=== PATIENT | male | born 1935 | race Caucasian/White ===

== ENCOUNTER 2024-04-07 08:52 | Emergency (ER) | payer OTHER, SELFPAY ==
[2024-04-07 08:57] VITALS: BP 139/104; PULSE 92; RESP 16; TEMP 36.4; O2SAT 96
--- NOTE | 2024-04-07 09:58 | W.ED.GENAD ---
Discharge Plan Disposition Patient Disposition: Home Condition: Stable Discharge Details Clinical Impression: Abscess of left buttock Primary Care Provider: Unknown,Unknown ED Provider: Sanjay Mcallister Home Meds and New Rx's Prescriptions: New doxycycline hyclate 100 mg capsule 100 mg PO BID 5 Days Qty: 10 0RF Discharge Instructions Instructions: Doxycycline (By mouth), Abscess (ED) Additional Instructions: You were seen in the emergency department for the abscess of your left buttock. We performed incision and drainage, I drained a significant amount of pus from the wound. I packed this with antibiotic impregnated packing cloth. Please have your home health nurse remove this packing just by pulling on it in 48 to 72 hours. Please keep the area clean and dry, please seek a referral to wound care as you spend a significant amount of time sitting on this area and it could develop into a worsening ulcer if not taking care of properly. I have sent a prescription for an antibiotic called doxycycline to treat the likely mild cellulitis surrounding this abscess. Please return for any worsening to the area especially with fever, worsening redness spreading out from the area, nausea vomiting. Referrals: [facility] [Outside] (Please refer patient to wound care, for prophylaxis against pressure ulcer from L buttock abscess) Discharge Data Discharge Date/Time-TO BE ENTERED AT DEPARTURE: 04/07/24 10:19 HPI General Date/Time Provider Initiated Documentation: 04/07/24 09:58. HPI Narrative: 89 year-old male presents to ED today by POV/ambulating with a chief complaint of boil on R buttock with onset about 3 weeks ago noted increase in swelling and pain to the area. Quality described as tender to touch, hurts to sit on- denies fever. Patient spends a lot of time sitting, sleeps in his recliner, no radiation to purulent drainage, bowel changes, rectal pain, chest pain, shortness of breath, nausea/vomiting, abdominal pain. Severity is described as 7/10 when palpated. Palliating factors include nothing specific- HomeHealth nurse has applied M-plex dressings. Provoking factors include nothing specific. Patient not anticoagulated. Related Data Home Medications Medication Instructions Recorded Confirmed doxycycline hyclate 100 mg capsule 100 mg PO BID prophylaxis 5 days 04/07/24 #10 caps Previous Rx's Medication Instructions Recorded doxycycline hyclate 100 mg capsule 100 mg PO BID prophylaxis 5 days 04/07/24 #10 caps General Stated Complaint: RashLesion CHIQUITA: 3 Review of Systems All systems reviewed & are unremarkable except as noted in HPI and below Exam Narrative Exam Narrative: GENERAL APPEARANCE: Well-nourished, non-toxic, awake and alert, atraumatic, no acute distress. SKIN: Warm, pink, dry, 2x2c indurated fluctuant swelling in L lateral buttock, no active drainage, no lymphadenitis, mild chafing rectally being managed by M-plex, no pressure ulcers HEAD: Normocephalic, atraumatic, normal hair distribution for gender/age. EYES: Pupils PERRLA, EOMs intact without nystagmus, normal conjunctiva, no exudates on lids/lashes. ENT: Nares patent, no circumoral cyanosis, no facial swelling NECK: Supple, trachea midline, painless cervical ROM. LUNGS/CHEST: Non-labored respirations, normal A/P diameter, symmetrical expansion, no chest wall deformity HEART (CV/PV): No peripheral edema, no JVD. ABDOMEN: Soft, non-distended, no guarding. MSK: Normal ROM, no swelling/deformity to bilateral UEs or LEs, moving all extremities without weakness, no cyanosis, spine midline without tenderness, normal curvature. NEURO: Mental Status AAOx4 - alert to person, place, time, events No facial droop, no forehead involvement. Motor: No focal weakness - strength 5/5 in bilateral UEs and LEs, proximal and distal, symmetric. Sensory: sensation intact to light touch globally. Gait normal: patient ambulated without ataxia into ED room. PSYCH: euthymic, cooperative, pleasant, appropriate speech Course Vital Signs Vital signs: Vital Signs Temperature 36.4 C L 04/07/24 08:57 Pulse 92 H 04/07/24 08:57 Respiratory Rate 16 04/07/24 08:57 Blood Pressure 139/104 H 04/07/24 08:57 Pulse Oximetry 96 04/07/24 08:57 Temperature 36.4 C L 04/07/24 08:57 Temperature Source Tympanic 04/07/24 08:57 Pulse 92 H 04/07/24 08:57 Respiratory Rate 16 04/07/24 08:57 Respiratory Effort Normal 04/07/24 09:16 Blood Pressure 139/104 H 04/07/24 08:57 Blood Pressure Position Sitting 04/07/24 08:57 Pulse Oximetry 96 04/07/24 08:57 Oxygen Delivery Method Room Air 04/07/24 08:57 Oxygen Flow Rate 0 04/07/24 08:57 Pain Level 3 04/07/24 08:57 Comment 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 89 y/o M presents to ED today with a chief complaint of L buttock abscess, increasing in size over 3 weeks. Has HomeHealth nurse, has M-plex on gluteal cleft, no pressure ulcers- denies fever, denies active drainage. Patients' medical history: Patient spends a significant time sitting and sleeps in recliner chair, has history of boils in the past. Family and social history: Noncontributory. Pertinent exam findings / vital signs include SKIN: Warm, pink, dry, 2x2c indurated fluctuant swelling in L lateral buttock, no active drainage, no lymphadenitis, mild chafing rectally being managed by M-plex, no pressure ulcers. Differential / pathologies of concern include abscess, unlikely sepsis, no signs of systemic infection, cellulitis. Diagnostic studies of: -Bedside POCUS informally shows fluid pocket in the left buttock about 2 x 2 cm. Interventions of: -Incision and drainage with lidocaine as local anesthetic, iodoform packing. ED Course/Assessment/Plan: Drained the gentleman's 2 x 2 left buttock abscess without complication with an 11 blade, expressed about 20 mL of dark purulent material with no complication, packed with iodoform after irrigation. Counseled on starting 5-day course of Keflex for prophylaxis, and [facility] Counseled on strict return criteria for worsening signs of infection like fever, weakness, nausea vomiting. Findings not consistent with pressure ulcer, severe cellulitis, sepsis. Disposition of Abscess of Left Buttock. Patient verbalized understanding of the plan and return to ED criteria and engaged in shared decision making. Medical Records Medical records reviewed: Yes I reviewed the patient's medical records. Quality:SDME Health Related Social Needs: No Data to Display PFSH All Active Problems (Updated 04/07/24 @ 10:04 by TABBY Kirkland) Abscess of left buttock (Acute) Social History Smoking risk assessment performed?: No Drug use: Never Substance use type: does not use Housing: house Do you feel safe at home: Yes Do you feel safe in your relationship?: Yes
[2024-04-07 10:17] VITALS: BP 137/92; PULSE 88; RESP 16; TEMP 36.4; O2SAT 96
== END 2024-04-07 10:19 | disposition home or self-care (01) ==
LOC: ER 10:31
PROVIDERS: Emergency Provider Physician Assistant
DX: L02.31 Cutaneous abscess of buttock (principal)
CPT/HCPCS: 10061